=== PATIENT | female | born 1965 | race Asian ===

== ENCOUNTER 2017-05-21 05:51 | Day surgery (SDC) | payer OTHER ==
[2017-05-21] MEDS ORDERED: MIDAZOLAM 1 MG/ML 2 ML INJ ×3 (08:38)
[2017-05-21] MEDS ORDERED: FENTAnyl 50 MCG/ML VIAL (08:38)
== END 2017-05-21 10:56 | disposition home or self-care (01) ==
LOC: GIL 05:51
DX: Z12.11 Encounter for screening for malignant neoplasm of colon (principal); K29.70 Gastritis, unspecified, without bleeding; K64.8 Other hemorrhoids
CPT/HCPCS: 43239; 87081